=== PATIENT | female | born 1960 | race Caucasian/White ===

== ENCOUNTER 2020-06-06 13:22 | Outpatient (CLI) | payer BC ==
--- NOTE | 2020-06-06 14:52 | RAD ---
RIGHT FOOT 3 VIEWS: Date: 06/06/2020 HISTORY: Right foot pain. FINDINGS: Osteoarthrosis and degenerative changes right foot. No acute fracture or dislocation. IMPRESSION: Osteoarthrosis without fracture or dislocation. POS: [facility]
--- NOTE | 2020-06-06 14:55 | RAD ---
LEFT FOOT 3 VIEWS: Date: 06/06/2020 HISTORY: Foot pain. FINDINGS: There is a plantar spur measuring approximately 7-8 mm. Tarsals otherwise unremarkable. Metatarsals a re unremarkable. MTP joints unremarkable. No other acute process. IMPRESSION: Plantar spur from the calcaneus. POS: [facility]
== END 2020-06-06 13:23 | disposition home or self-care (01) ==
LOC: BICRAD 13:22
PROVIDERS: ATTEND Physician Assistant
DX: M79.671 Pain in right foot (principal); M79.672 Pain in left foot; M77.32 Calcaneal spur, left foot; M19.071 Primary osteoarthritis, right ankle and foot

== ENCOUNTER 2021-01-12 09:19 | Outpatient (CLI) | payer BC | END 2021-01-12 09:20 | disposition home or self-care (01) | LOC: BICMAMMO 09:19 | PROVIDERS: ATTEND Physician Assistant | DX: Z13.820 Encounter for screening for osteoporosis (principal); E03.9 Hypothyroidism, unspecified; Z78.0 Asymptomatic menopausal state; M85.851 Other specified disorders of bone density and structure, right thigh; M85.852 Other specified disorders of bone density and structure, left thigh | CPT/HCPCS: 77080 ==

== ENCOUNTER 2021-11-06 07:55 | Outpatient (CLI) | payer BC | END 2021-11-06 07:56 | disposition home or self-care (01) | LOC: BICMAMMO 07:55 | PROVIDERS: ATTEND Physician Assistant | DX: Z12.31 Encounter for screening mammogram for malignant neoplasm of breast (principal); Z91.89 Other specified personal risk factors, not elsewhere classified | CPT/HCPCS: 77063; 77067 ==

== ENCOUNTER 2023-11-15 08:43 | Outpatient (CLI) | payer BC | END 2023-11-15 08:44 | disposition home or self-care (01) | LOC: BICMAMMO 08:43 | PROVIDERS: ATTEND Physician Assistant | DX: Z12.31 Encounter for screening mammogram for malignant neoplasm of breast (principal); Z91.89 Other specified personal risk factors, not elsewhere classified | CPT/HCPCS: 77063; 77067 ==

== ENCOUNTER 2025-04-30 09:37 | Outpatient (CLI) | payer BC | END 2025-04-30 09:38 | disposition home or self-care (01) | LOC: SCSRAD 09:37 | PROVIDERS: ATTEND Family Medicine | DX: R06.02 Shortness of breath (principal); R53.83 Other fatigue | CPT/HCPCS: 71046 ==